=== PATIENT | female | born 1935 | race Caucasian/White ===

== ENCOUNTER 2017-12-12 07:46 | Day surgery (SDC) | payer MEDICARE ==
[2017-12-11 11:15] LABS: BASOPHILS % (AUTO) 0.2 % (0.0-5.0); EOSINOPHILS % (AUTO) 4.1 % (0.0-8.0); HEMATOCRIT 37.9 % (36-48); LYMPHOCYTES % (AUTO) 18.7 % (21.0-51.0); MEAN CORPUSCULAR HEMOGLOBIN 27.9 pg (27.0-33.0); MEAN CORPUSCULAR HGB CONC 34.5 g/dL (32.0-36.0); MEAN CORPUSCULAR VOLUME 80.8 fL (79-99); PLATELET COUNT (AUTO) 131 K/uL (130-400); RED BLOOD CELL COUNT(AUTO) 4.69 MIL/uL (4.00-5.50); RED CELL DISTRIBUTION WIDTH 14.3 % (11.0-15.5); WHITE BLOOD COUNT (AUTO) 5.2 K/uL (4.8-10.8)
[2017-12-11 11:28] LABS: POTASSIUM 3.5 mmol/L (3.5-5.1)
[2017-12-11 15:42] VITALS: BP 133/73
[~2017-12-12] VITALS: Ht 157.5 cm; Wt 72.6 kg
[2017-12-12] VITALS (13 sets, daily range): BP systolic 124–151; BP diastolic 57–76
[~2017-12-12 07:46] MED LIST: ALPR0.255 PO; ATOR40TA71 PO; DEXL60CA3 PO; EVER10TA PO; FAMO20TA8 PO; LACT1CAP62 PO; LACTAB PO; LANR90SY SQ; LEVO88TA7 PO; METO10TA3 PO; MIRA50TA PO; MIRT15TA PO; POTA-9 PO; calcium PO; glucosamine PO
[2017-12-12] MEDS ORDERED: CEFAZOLIN SODIUM 1 GM VIAL IVP ONE (08:00)
[2017-12-12] MEDS ORDERED: LACTATED RINGERS 1000ML 1,000 ML IV ONE (08:55)
[2017-12-12] MEDS ORDERED: BUPIVACAINE/PF 0.25% 30ML VIAL IJ ONE (09:48)
[2017-12-12] MEDS ORDERED: PROPOFOL 10 MG/ML 20ML VIAL IV ONE (10:31)
[2017-12-12] MEDS ORDERED: MIDAZOLAM HCL 1 MG/ML 2ML VIAL ONE (10:31)
[2017-12-12] MEDS ORDERED: LIDOCAINE PF 2% 5ML ABBOJECT ONE (10:31)
[2017-12-12] MEDS ORDERED: FENTANYL CITRATE PF 50 MCG/1 ML 2ML VIAL ONE (10:32)
== END 2017-12-12 12:55 | disposition home or self-care (01) ==
LOC: DAH 07:46
PROVIDERS: ATTEND Urology
DX: Z46.2 Encounter for fitting and adjustment of other devices related to nervous system and special senses (principal); N81.89 Other female genital prolapse; R32 Unspecified urinary incontinence; E03.9 Hypothyroidism, unspecified; K21.9 Gastro-esophageal reflux disease without esophagitis; Z79.899 Other long term (current) drug therapy; Z98.890 Other specified postprocedural states; Z85.07 Personal history of malignant neoplasm of pancreas; J43.9 Emphysema, unspecified; M19.90 Unspecified osteoarthritis, unspecified site; I25.10 Atherosclerotic heart disease of native coronary artery without angina pectoris; I73.9 Peripheral vascular disease, unspecified; I10 Essential (primary) hypertension; Z98.49 Cataract extraction status, unspecified eye
CPT/HCPCS: 36415; 64585; 64595; 80048; 85025; 88300; 93005; A4510; A4600; A6207; J0690; J2001; J2250; J2704; J3010; J3490; J7120